=== PATIENT | female | born 1985 | race Caucasian/White ===

== ENCOUNTER 2017-12-13 12:32 | Outpatient (CLI) | payer OTHER | END 2017-12-13 12:33 | disposition home or self-care (01) | LOC: DTY/OP 12:32 | PROVIDERS: ATTEND Surgery | DX: E66.01 Morbid (severe) obesity due to excess calories (principal) | CPT/HCPCS: 97802 ==

== ENCOUNTER 2017-12-17 09:15 | Inpatient (IN) | payer OTHER, SELFPAY ==
[2017-12-24] MEDS ORDERED: CEFAZOLIN/Water 2 GM/20 ML SYRINGE ONE (06:12)
[2017-12-24] MEDS ORDERED: Heparin 5,000 UNITS/ML VIAL ONE (06:12)
[2017-12-24] MEDS ORDERED: Fentanyl 250 MCG/5 ML VIAL ONE (06:46)
[2017-12-24] MEDS ORDERED: Famotidine/PF 20 mg/2ml Vial ONE (06:46)
[2017-12-24] MEDS ORDERED: Fentanyl 100 MCG/2 ML VIAL ONE ×4 (06:46→10:27)
[2017-12-24] MEDS ORDERED: Scopolamine 1.5 mg/72 hour Patch ONE (07:03)
[2017-12-24] MEDS ORDERED: Bupivacaine/Epinephrine 0.25% 30 ML VIAL ONE (07:16)
[2017-12-24] MEDS ORDERED: Midazolam HCl 2 mg/2 ml Vial ONE (07:22)
[2017-12-24] MEDS ORDERED: Promethazine HCl 25 MG/ML VIAL SLOW IVP PRN (08:32)
[2017-12-24] MEDS ORDERED: Ondansetron HCl/PF 4 MG/2 ML Vial IVP PRN ×3 (08:32→09:47)
[2017-12-24] MEDS ORDERED: Meperidine HCl/PF 25 MG/ML VIAL SLOW IVP PRN (08:32)
[2017-12-24] MEDS ORDERED: Promethazine HCl 25 MG/ML VIAL IM PRN ×3 (08:32→09:47)
[2017-12-24] MEDS ORDERED: HumaLOG 300 UNITS/3 ML VIAL SC PRN (08:46)
[2017-12-24] MEDS ORDERED: hydrALAZINE 20 MG/ML VIAL SLOW IVP PRN (08:46)
[2017-12-24] MEDS ORDERED: Dextrose 5% in Water 1,000 ML IV PRN (08:46)
[2017-12-24] MEDS ORDERED: diphenhydrAMINE 50 MG/ML VIAL IVP PRN (08:46)
[2017-12-24] MEDS ORDERED: Hydrocodone-Acetamin 15 ML UDCUP PO PRN (08:46)
[2017-12-24] MEDS ORDERED: Dextrose 50% Abboject 50 ML SYRINGE SLOW IVP PRN (08:46)
--- NOTE | 2017-12-24 08:50 | OP ---
DATE OF PROCEDURE: 12/24/2017 PREOPERATIVE DIAGNOSIS: Morbid obesity. SURGEON: Fahad Sweeney M.D. RECEPTIONIST CLERK: Anderson Dunlap, MS-3 PROCEDURE PERFORMED: Laparoscopic sleeve gastrectomy, esophagogastroscopy. INDICATIONS: A 32-year-old female, morbidly obese, who has attempted multiple weight loss programs [facility]. FINDINGS: A 38 Nepali bougie used. PROCEDURE IN DETAIL: After informed consent was obtained, the patient was taken to the operating tigist m and given general endotracheal anesthesia. She was placed in the supine position. The abdomen was prepped and draped in usual fashion. Local anesthesia infiltrated subcutaneously and deep. A 12 mm incision was performed approximately 8 inches below the xiphoid slightly to the left. Veress needle inserted. Drop test performed. Pneumoperitoneum was created to a pressure of 15 mmHg. Zero degree laparoscope inserted under direct vision, a Relayren liver retractor inserted. Left lobe of liver retracted superiorly. Pylorus identified, a 12 mm port placed on the right beneath it and two 12s pl aced left subcostal. The omentum was taken off the greater curvature 5 cm from the pylorus utilizing the LigaSure. The left crura defined with the LigaSure as well as the short gastrics divided with t he LigaSure. A 38-Nepali bougie inserted directed into the antrum. The linear 60 mm green load stap ler used to divide the antrum to the bougie, gold load along the bougie, and a series of blues throug h the angle of His. Intraoperative endoscopy was performed. The video endoscope inserted under dire ct vision and advanced into the sleeve. The staple line inspected. There was no bleeding. Staple l ine then tested by inflating the new stomach with pressurized air under water and there was no air le ak. Stomach decompressed. Scope removed. The remnant stomach removed from the abdomen through the left lateral port site. The fascia closed with 0 Vicryl suture and the GraNee needle. Hemostasis wa s assured. Trocars and retractors removed. The skin closed with interrupted 4-0 Rapide. Now, it wa s noted after she was under general anesthesia that she had a cutaneous abscess in the left lower abd omen with some surrounding cellulitis, so she was already under anesthesia, we elected to proceed wit h surgery. After the wounds were closed and we applied Dermabond, we elected to do an I&D of this wi th an 11 blade and then just left it open and covered it with a sterile gauze.
[2017-12-24] MEDS ORDERED: SUGAMMADEX SODIUM 200 MG/2 ML VIAL ONE (09:01)
[2017-12-24] MEDS ORDERED: Promethazine HCl 25 MG/ML VIAL ONE (09:08)
[2017-12-24] MEDS ORDERED: Ondansetron HCl/PF 4 MG/2 ML Vial ONE ×2 (09:13→11:13)
[2017-12-24] MEDS ORDERED: Naloxone HCl 0.4 mg/ml Vial IV PRN (09:47)
[2017-12-24] MEDS ORDERED: diphenhydrAMINE 50 MG/ML VIAL IM PRN (09:47)
[2017-12-24] MEDS ORDERED: fentaNYL Citrate/PF 2,000 MCG in Sodium Chloride 0.9% 60 ML IV PRN ×2 (09:47→09:58)
[2017-12-24] MEDS ORDERED: diphenhydrAMINE 25 MG CAP PO PRN (09:47)
[2017-12-24] MEDS ORDERED: Zolpidem Tartrate 5 MG TAB PO PRN (09:47)
[2017-12-24] MEDS ORDERED: Communication Order-Pharmacy FS SCH (10:00)
[2017-12-24] MEDS ORDERED: Lidocaine 1% PF 5 ML VIAL ONE (11:13)
[2017-12-24] MEDS ORDERED: Ketorolac Tromethamine 30 MG/ML VIAL ONE (11:13)
[2017-12-24] MEDS ORDERED: PROPOFOL 200 MG/20 ML VIAL ONE (11:13)
[2017-12-24] MEDS ORDERED: Glycopyrrolate 0.2 MG/ML 5 ML SYRINGE ONE (11:13)
[2017-12-24] MEDS ORDERED: Dexamethasone 20 MG/5 ML VIAL ONE (11:13)
[2017-12-24 11:41] VITALS: BMI 48.6
[2017-12-24] MEDS: Pantoprazole 40 MG VIAL IVP SCH (11:53)
[2017-12-24] MEDS ORDERED: CEFAZOLIN/Water 2 GM/20 ML SYRINGE SLOW IVP SCH ×2 (12:00→14:00)
[2017-12-24] MEDS ORDERED: Ketorolac Tromethamine 30 MG/ML VIAL IVP SCH ×2 (12:00)
[2017-12-24] MEDS: Ketorolac Tromethamine 30 MG/ML VIAL IVP SCH ×2 (15:25→21:46)
[2017-12-24] MEDS: CEFAZOLIN/Water 2 GM/20 ML SYRINGE SLOW IVP SCH ×2 (15:25→23:50)
[2017-12-24] MEDS ORDERED: Acetaminophen 1,000 MG in Premix Bag 1 BAG IVPB PRN (19:14)
[2017-12-24] MEDS: 1/2 NS w/KCL 20 mEq 1,000 ML IV SCH ×2 (21:16→21:17)
[2017-12-24] MEDS: diphenhydrAMINE 50 MG/ML VIAL IVP PRN (21:47)
[2017-12-25] MEDS: diphenhydrAMINE 50 MG/ML VIAL IVP PRN (00:59)
[2017-12-25] MEDS: 1/2 NS w/KCL 20 mEq 1,000 ML IV SCH ×2 (00:59→08:41)
[2017-12-25] MEDS: Ketorolac Tromethamine 30 MG/ML VIAL IVP SCH ×2 (02:50→08:34)
[2017-12-25 05:11] LABS: #Lymphocytes 1.7 thou/uL (1.20-3.40); %Eosinophils 0.1 % (0.0-10.0); %Lymphocytes 14.1 % (21.0-51.0); %Monocytes 8.8 % (0.0-10.0); Hemoglobin 11.1 g/dL (12.0-16.0); Mean Corpuscular HGB CONC 34.4 g/dL (32.0-36.0); Mean Corpuscular Hemoglobin 33.8 pg (27.0-31.0); Mean Corpuscular Volume 98.2 fL (78.0-98.0); Mean Platelet Volume 7.4 fL (7.4-10.4); Platelet Count 286 thou/uL (130-400); RBC Distribution Width 11.8 % (11.5-14.5); Red Blood Cell (RBC) Count 3.28 mill/uL (4.20-5.40); White Blood Cell (WBC) Count 11.7 thou/uL (4.8-10.8)
[2017-12-25 05:42] LABS: Anion Gap 12 mmol/L (10-20); BUN (Urea Nitrogen) 9 mg/dL (7.0-18.7); Calc. Creatinine Clearance 206 mL/min (70-130); Calcium 8.8 mg/dL (7.8-10.44); Carbon Dioxide 24 mmol/L (22-29); Chloride 107 mmol/L (98-107); Estimated GFR-MDRD 81; Glucose 87 mg/dL (70-105); Sodium 139 mmol/L (136-145)
[2017-12-25] MEDS: Pantoprazole 40 MG VIAL IVP SCH (08:34)
[2017-12-25] MEDS ORDERED: Enoxaparin Sodium 40 MG/0.4 ML SYRINGE SC SCH (09:00)
--- NOTE | 2017-12-25 10:19 | RAD ---
ESOPHOGRAM: History: Bariatric surgery. FINDINGS: Single column contrast evaluation shows post-operative changes of the stomach consistent with gastric sleeve procedure. There is no evidence of obstruction or leak. Fluoro time = 0.2 minutes. POS: [facility]
[2017-12-25 11:45] VITALS: BP 142/72; TEMP 98.2
--- NOTE | 2017-12-26 13:52 | DIS ---
DISCHARGE DIAGNOSIS: Morbid obesity. PROCEDURES DURING ADMISSION: Laparoscopic sleeve gastrectomy. She also had an I&D of cutaneous absc ess. HOSPITAL COURSE: The patient was admitted, taken to the operating room where she underwent a sleeve gastrectomy. She was also after intubation found to have a small cutaneous abscess that was lanced. Cultures were obtained. She is now doing well. X-ray was fine. She is tolerating liquids. She wi ll continue dressing changes. We discharge her home on hydrocodone, Zofran, and Bactrim suspension. She will follow up with me in 2 weeks.
== END 2017-12-25 12:59 | disposition home or self-care (01) | DRG 621 ==
LOC: SURG A 12-24 05:57
PROVIDERS: ADMIT Surgery; ATTEND Surgery
PROC: 0DB64Z3 Excision of Stomach, Percutaneous Endoscopic Approach, Vertical (ICD-10-PCS; principal; 2017-12-24)
PROC: 0DJ68ZZ Inspection of Stomach, Via Natural or Artificial Opening Endoscopic (ICD-10-PCS; 2017-12-24)
DX: E66.01 Morbid (severe) obesity due to excess calories (principal); K21.9 Gastro-esophageal reflux disease without esophagitis; I10 Essential (primary) hypertension; E11.9 Type 2 diabetes mellitus without complications; G89.18 Other acute postprocedural pain; Z68.42 Body mass index [BMI] 45.0-49.9, adult; Z87.891 Personal history of nicotine dependence
CPT/HCPCS: 36415; 74241; 80048; 85025; 87070; 87077; 87205; 88307; 88312; 94760; C9113; J0131; J1200; J1644; J1650; J1885; J2250; J2405; J2550; J3010; J7050; S0028

== ENCOUNTER 2017-12-17 09:39 | Outpatient (CLI) | payer OTHER, SELFPAY ==
[2017-12-17 11:04] LABS: #Eosinphils 0.4 thou/uL (0.0-0.7); #Lymphocytes 1.9 thou/uL (1.20-3.40); #Monocytes 0.5 thou/uL (0.11-0.59); #Neutrophils 4.9 thou/uL (1.40-6.50); %Basophils 0.6 % (0.0-1.0); %Eosinophils 4.9 % (0.0-10.0); %Lymphocytes 24.9 % (21.0-51.0); %Monocytes 5.9 % (0.0-10.0); %Neutrophils 63.7 % (42.0-75.0); Mean Corpuscular HGB CONC 34.6 g/dL (32.0-36.0); Mean Corpuscular Hemoglobin 33.7 pg (27.0-31.0); Mean Corpuscular Volume 97.5 fL (78.0-98.0); Mean Platelet Volume 7.4 fL (7.4-10.4); Platelet Count 336 thou/uL (130-400); RBC Distribution Width 11.8 % (11.5-14.5); Red Blood Cell (RBC) Count 4.44 mill/uL (4.20-5.40); White Blood Cell (WBC) Count 7.7 thou/uL (4.8-10.8)
[2017-12-17 11:20] LABS: Hemoglobin A1c 4.8 % (4.0-6.0)
[2017-12-17 11:29] LABS: ALT (SGPT) 24 U/L (8-55); AST (SGOT) 16 U/L (5-34); Albumin 4.7 g/dL (3.5-5.0); Alkaline Phosphatase 76 U/L (40-150); Anion Gap 11 mmol/L (10-20); BUN (Urea Nitrogen) 20 mg/dL (7.0-18.7); Bilirubin, Direct 0.2 mg/dL (0.1-0.3); Bilirubin, Total 0.6 mg/dL (0.2-1.2); Calc. Creatinine Clearance 0 mL/min (70-130); Calcium 9.5 mg/dL (7.8-10.44); Carbon Dioxide 27 mmol/L (22-29); Chloride 103 mmol/L (98-107); Estimated GFR-MDRD 68; Glucose 96 mg/dL (70-105); Protein, Total 7.7 g/dL (6.0-8.3); Sodium 137 mmol/L (136-145)
--- NOTE | 2017-12-17 11:48 | RAD ---
2 VIEWS CHEST: Date: 12/17/17 HISTORY: Preoperative chest radiograph. FINDINGS: PA and lateral views of chest obtained. Comparison made to previous exam from 06/23/15. Two views of the chest demonstrate the lungs to be well aerated. No evidence of active intrathoracic disease seen. No evidence of effusions, pneumonia, or pneumothorax seen. IMPRESSION: Normal 2 views chest. POS: [facility]
[2017-12-17 13:16] LABS: BHCG - Serum Negative (NEGATIVE); Pregs Control Background? CLEAR/WHITE (CLR/WHITE); Pregs Control Bar Appear? YES (CONTROL BAR)
== END 2017-12-17 09:40 | disposition home or self-care (01) ==
LOC: LABBT 09:39
PROVIDERS: ATTEND Surgery
DX: Z01.818 Encounter for other preprocedural examination (principal); E66.01 Morbid (severe) obesity due to excess calories
CPT/HCPCS: 71046; 80053; 80076; 83036; 84703; 85025; 93005; 93010

== ENCOUNTER 2018-08-03 10:26 | Emergency (ER) | payer SELFPAY | END 2018-08-03 10:36 | disposition home or self-care (01) | LOC: SCSER 10:26 | DX: J11.1 Influenza due to unidentified influenza virus with other respiratory manifestations (principal); G43.909 Migraine, unspecified, not intractable, without status migrainosus; Z79.899 Other long term (current) drug therapy | CPT/HCPCS: 99283 ==

== ENCOUNTER → 2018-10-09 | Emergency (ER) | payer SELFPAY ==
[~2018-10-09] MED LIST: Fluorescein Opthalmic Strip ONE; Ketorolac Tromethamine 30 MG/ML VIAL ONE; Proparacaine 0.5% Opth 15 ML BOT ONE
== END ==
LOC: ERS 12:14
DX: S05.01XA Injury of conjunctiva and corneal abrasion without foreign body, right eye, initial encounter (principal); G43.909 Migraine, unspecified, not intractable, without status migrainosus; F17.210 Nicotine dependence, cigarettes, uncomplicated; V49.9XXA Car occupant (driver) (passenger) injured in unspecified traffic accident, initial encounter
CPT/HCPCS: 96372; J1885

== ENCOUNTER 2019-11-11 22:04 | Emergency (ER) | payer OTHER, SELFPAY ==
[2019-11-11] MEDS ORDERED: Ondansetron ODT 4 MG TAB ONE (23:28)
== END 2019-11-12 00:35 | disposition home or self-care (01) ==
LOC: ERS 22:04
DX: R50.9 Fever, unspecified (principal); R05 Cough; Z20.828 Contact with and (suspected) exposure to other viral communicable diseases; G43.909 Migraine, unspecified, not intractable, without status migrainosus; F17.210 Nicotine dependence, cigarettes, uncomplicated; Z79.899 Other long term (current) drug therapy
CPT/HCPCS: 87635; 87804; 99283; Q0162; U0003

== ENCOUNTER → 2019-12-01 | Day surgery (SDC) | payer SELFPAY ==
[~2019-12-01] MED LIST changes: +Bupivacaine 0.25% HCL 30 ML VIAL ONE; +Dexamethasone 20 MG/5 ML VIAL ONE; +Fentanyl 100 MCG/2 ML VIAL ONE; -Fluorescein Opthalmic Strip ONE; +Glycopyrrolate 0.2 MG/ML 5 ML SYRINGE ONE; +HYDROcodone/Acetaminophen 5/325 mg Tablet ONE; +Lidocaine 1% PF 5 ML VIAL ONE; +Lidocaine 1% w/Epinephrine 1:100K 20 ML VIAL ONE; +Midazolam HCl 2 mg/2 ml Vial ONE; +Morphine 4 MG/ML VIAL ONE; +Ondansetron PF 4 MG/2 ML Vial ONE; +PHENYLEPHRINE-NS 100 MCG/ML 10 ML SYRINGE ONE; +PROPOFOL 200 MG/20 ML VIAL ONE; +Promethazine HCl 25 MG/ML VIAL ONE; -Proparacaine 0.5% Opth 15 ML BOT ONE; +Rocuronium Bromide 10 MG/ML (10ML VIAL) ONE; +SUGAMMADEX SODIUM 200 MG/2 ML VIAL ONE; +Scopolamine 1.5 mg/72 hour Patch ONE; +Succinylcholine Chloride 20 MG/ML 10 ml SYRINGE FS ONE
[2019-12-01 11:49] LABS: #Basophils 0.1 thou/uL (0.0-0.2); #Eosinphils 0.8 thou/uL (0.0-0.7); #Monocytes 0.6 thou/uL (0.11-0.59); #Neutrophils 5.1 thou/uL (1.40-6.50); %Basophils 0.9 % (0.0-1.0); %Eosinophils 8.8 % (0.0-10.0); %Lymphocytes 23.9 % (21.0-51.0); %Monocytes 6.6 % (0.0-10.0); %Neutrophils 59.8 % (42.0-75.0); Hemoglobin 12.4 g/dL (12.0-16.0); Mean Corpuscular Hemoglobin 32.3 pg (27.0-31.0); Mean Corpuscular Volume 97.8 fL (78.0-98.0); Mean Platelet Volume 6.8 fL (7.4-10.4); Platelet Count 429 thou/uL (130-400); RBC Distribution Width 14.2 % (11.5-14.5); Red Blood Cell (RBC) Count 3.84 mill/uL (4.20-5.40); White Blood Cell (WBC) Count 8.5 thou/uL (4.8-10.8)
[2019-12-01 12:12] LABS: Bacteria/HPF None Seen HPF (None Seen); Bilirubin Negative (Negative); Blood, Urine 2+ (Negative); Clarity Clear (Clear); Glucose, Urine (Dipstick) Normal (Negative); Leukocyte Negative Leu/uL (Negative); Nitrite Negative (Negative); Protein, Urine (Dipstick) 10 mg/dL (Neg-Trace); RBC/HPF 0-3 HPF (0-3); Squamous Epithelial 0-3 HPF (0-3); Urobilinogen Normal mg/dL (Less than 2); WBC/HPF 0-3 HPF (0-3)
[2019-12-01 12:16] LABS: ALT (SGPT) 15 U/L (8-55); AST (SGOT) 17 U/L (5-34); Albumin 4.3 g/dL (3.5-5.0); Alkaline Phosphatase 64 U/L (40-110); Anion Gap 15 mmol/L (10-20); BUN (Urea Nitrogen) 16 mg/dL (7.0-18.7); Bilirubin, Total 0.6 mg/dL (0.2-1.2); Calc. Creatinine Clearance 0 mL/min (70-130); Carbon Dioxide 23 mmol/L (22-29); Chloride 103 mmol/L (98-107); Estimated GFR-MDRD 63; Globulin 3.3 g/dL (2.4-3.5); Glucose 108 mg/dL (70-105); Lipase 27 U/L (8-78); Potassium 3.7 mmol/L (3.5-5.1); Protein, Total 7.6 g/dL (6.0-8.3); Sodium 137 mmol/L (136-145)
[2019-12-01 12:22] LABS: BHCG - Serum Negative (NEGATIVE); Pregs Control Background? CLEAR/WHITE (CLR/WHITE); Pregs Control Bar Appear? YES (CONTROL BAR)
--- NOTE | 2019-12-01 12:41 | ULT ---
RIGHT UPPER QUADRANT ULTRASOUND CLINICAL HISTORY: Epigastric abdominal pain with nausea vomiting. COMPARISON: April 23, 2010 FINDINGS: Liver:Normal echotexture without focal mass. Intrahepatic bile ducts: No intrahepatic or extrahepatic biliary dilation.; Common bile duct: 4.3 mm. Gallbladder: There is a large stone within the gallbladder. Call's sign:None Main portal vein:Patent with hepatopedal flow. Pancreas:Visualized pancreas appears normal. Right kidney: Right kidney measures 9.0 x 4.3 x 5.9 cm. No focal renal lesion or hydronephrosis. Additional findings: None. IMPRESSION: Cholelithiasis without sonographic evidence of acute cholecystitis.
--- NOTE | 2019-12-01 17:50 | OP ---
DATE OF PROCEDURE: 12/01/2019 PREOPERATIVE DIAGNOSIS: Acute cholecystitis. POSTOPERATIVE DIAGNOSIS: Acute cholecystitis. PROCEDURE PERFORMED: Laparoscopic cholecystectomy. ANESTHESIA: General. ESTIMATED BLOOD LOSS: Minimal. COMPLICATIONS: None. SPECIMENS: Gallbladder. FINDINGS: Cholecystitis. PROCEDURE IN DETAIL: The patient was taken to the operating room and laid supine on the operating room table. After general anesthetic was obtained, the abdomen was prepped and draped in a sterile fashion. A curved incision was made below the umbilicus. Cautery was used to dissect down to the umbilical fascia. Umbilical fascia was incised and held up using a Linda. The abdominal cavity was entered using a Marjan clamp. Holding stitch of Vicryl was placed on each side of the fascia. Heck trocar was placed. High-flow pneumoperitoneum was obtained. An upper midline 5 mm port and 2 right upper quadrant 5 mm ports were placed under direct camera visualization. The gallbladder was retracted from the gallbladder fossa. The peritoneum of the gallbladder was opened anteriorly and posteriorly. The critical view triangle was seen showing only the cystic duct and cystic artery branching from medial to lateral. There were no other branching structures. Two clips were placed proximally on the cystic duct and one laterally. It was cut using laparoscopic scissors. The cystic artery was taken in the same way. Electrocautery was then used to dissect the gallbladder out of the gallbladder fossa. The gallbladder was placed in an Endo catch bag and brought out through the Heck. There was no bleeding or bile in the liver bed. The cystic duct stump and cystic artery stump were intact, without evidence of extravasation or bleeding. All port sites were infiltrated using local anesthesia. All ports were removed under camera visualization. Pneumoperitoneum was let down. The Vicryl was used to close the fascial defect below the umbilicus. All incisions were irrigated and closed using 4-0 Monocryl and Dermabond. The patient was en route to Recovery in stable condition. All instrument counts, needle counts and lap counts were correct. Job ID: [id number]
--- NOTE | 2019-12-01 18:39 | HP ---
CHIEF COMPLAINT: Right upper quadrant pain. HISTORY OF PRESENT ILLNESS: This is a 34-year-old female with a history of pain in her right upper quadrant. This is the 2nd attack that she has had and did not go away with pain medicine in the emergency room. Ultrasound shows gallstones. Never had jaundice or pancreatitis. PAST MEDICAL HISTORY: Includes: 1. Morbid obesity status post lap gastric sleeve. SURGICAL HISTORY: Lap sleeve. MEDICATIONS: See list. ALLERGIES: IODINE. SOCIAL HISTORY: No smoking or alcohol. REVIEW OF SYSTEMS: Ten-system review of systems otherwise negative unless described above. PHYSICAL EXAMINATION: HEENT: Sclerae are anicteric. Oropharynx clear. NECK: No lymphadenopathy. CHEST: Clear. HEART: Regular rate. ABDOMEN: Soft. Tender right upper quadrant with localized guarding. No rebound. No abdominal or inguinal hernias. EXTREMITIES: No ischemia or edema to extremities. LABORATORY DATA: Liver function tests normal. Ultrasound shows gallstones. ASSESSMENT: Acute cholecystitis. PLAN: Laparoscopic cholecystectomy. Risks, benefits, and alternatives discussed. She gives consent. We will do it today. Job ID: [id number]
== END ==
LOC: ERS 11:09 → SDC 14:53
PROVIDERS: ATTEND Surgery
PROC: 0FT44ZZ Resection of Gallbladder, Percutaneous Endoscopic Approach (ICD-10-PCS; principal; 2019-12-01)
DX: K80.13 Calculus of gallbladder with acute and chronic cholecystitis with obstruction (principal); Z91.041 Radiographic dye allergy status; Z91.013 Allergy to seafood; Z91.030 Bee allergy status
CPT/HCPCS: 76705; 80053; 81003; 81015; 83690; 84703; 85025; 88304; 93005; 96361; 96374; 96375; 96376; J0690; J1100; J1885; J2001; J2250; J2270; J2405; J2550; J2704; J3010; S0020

== ENCOUNTER 2021-11-27 23:47 | Emergency (ER) | payer SELFPAY ==
[2021-11-28 00:23] LABS: #Eosinphils 0.5 thou/uL (0.0-0.7); #Monocytes 0.4 thou/uL (0.11-0.59); #Neutrophils 3.3 thou/uL (1.40-6.50); %Basophils 0.7 % (0.0-1.0); %Eosinophils 10.2 % (0.0-10.0); %Monocytes 7.5 % (0.0-10.0); %Neutrophils 62.5 % (42.0-75.0); Hemoglobin 13.9 g/dL (12.0-16.0); Mean Corpuscular HGB CONC 31.4 g/dL (32.0-36.0); Mean Corpuscular Hemoglobin 29.7 pg (27.0-31.0); Mean Corpuscular Volume 94.6 fL (78.0-98.0); Mean Platelet Volume 7.1 fL (7.4-10.4); Platelet Count 344 thou/uL (130-400); RBC Distribution Width 14.8 % (11.5-14.5); Red Blood Cell (RBC) Count 4.68 mill/uL (4.20-5.40); White Blood Cell (WBC) Count 5.3 thou/uL (4.8-10.8)
[2021-11-28] MEDS ORDERED: Morphine 4 MG/ML VIAL ONE (00:37)
[2021-11-28] MEDS ORDERED: Ondansetron PF 4 MG/2 ML Vial ONE (00:37)
[2021-11-28 00:45] LABS: ALT (SGPT) 170 U/L (8-55); AST (SGOT) 57 U/L (5-34); Albumin 4.1 g/dL (3.5-5.0); Alkaline Phosphatase 170 U/L (40-110); Anion Gap 15 mmol/L (10-20); BUN (Urea Nitrogen) 13 mg/dL (7.0-18.7); Bilirubin, Total 0.3 mg/dL (0.2-1.2); Calc. Creatinine Clearance 0 mL/min (70-130); Calcium 8.9 mg/dL (7.8-10.44); Carbon Dioxide 23 mmol/L (22-29); Chloride 103 mmol/L (98-107); Globulin 3.5 g/dL (2.4-3.5); Glucose 94 mg/dL (70-105); Potassium 3.3 mmol/L (3.5-5.1); Protein, Total 7.6 g/dL (6.0-8.3); Sodium 138 mmol/L (136-145)
[2021-11-28 00:50] LABS: BHCG - Serum Negative (NEGATIVE); Pregs Control Background? CLEAR/WHITE (CLR/WHITE); Pregs Control Bar Appear? YES (CONTROL BAR)
[2021-11-28 00:53] LABS: Bilirubin Negative (Negative); Blood, Urine Trace (Negative); Clarity Turbid (Clear); Glucose, Urine (Dipstick) Normal (Negative); Ketone, Urine Negative (Negative); Leukocyte 75 Leu/uL (Negative); Nitrite Negative (Negative); Protein, Urine (Dipstick) 20 mg/dL (Neg-Trace); Specific Gravity, Urine 1.024 (1.002-1.036); Squamous Epithelial 21-50 HPF (0-3); Urobilinogen Normal mg/dL (Less than 2)
[2021-11-28 00:54] LABS: Bacteria/HPF 1+ HPF (None Seen)
[2021-11-28] MEDS ORDERED: Ketorolac Tromethamine 30 MG/ML VIAL ONE (01:31)
[2021-11-28] MEDS ORDERED: Metoclopramide HCl 10 MG/2 ML VIAL ONE (01:31)
== END 2021-11-28 03:50 | disposition home or self-care (01) ==
LOC: ERS 23:47
DX: R10.84 Generalized abdominal pain (principal); F17.210 Nicotine dependence, cigarettes, uncomplicated
CPT/HCPCS: 36415; 74176; 80053; 81003; 81015; 83605; 83690; 84703; 85025; 96374; 96375; J1885; J2270; J2405; J2765

== ENCOUNTER 2025-05-10 13:15 | Inpatient (IN) | payer SELFPAY ==
[2025-05-10] MEDS ORDERED: Famotidine/PF 20 mg/2ml Vial ONE (16:19)
[2025-05-10] MEDS ORDERED: diphenhydrAMINE 50 MG/ML VIAL ONE (16:19)
[2025-05-10] MEDS ORDERED: Metoclopramide HCl 10 MG (2 mL) VIAL ONE (16:19)
[2025-05-10 17:54] LABS: #Basophils 0.06 10x3/uL (0.0-0.2); #Eosinophils 0.05 10x3/uL (0.0-0.7); #Monocytes 0.86 10x3/uL (0.11-0.59); #Neutrophils 4.84 10x3/uL (1.40-6.50); %Basophils 0.9 % (0.0-1.0); %Eosinophils 0.7 % (0.0-10.0); %Lymphocytes 17.0 % (21.0-51.0); %Monocytes 12.2 % (0.0-10.0); %Neutrophils 68.8 % (42.0-75.0); Hematocrit 28.8 % (36.0-47.0); Hemoglobin 9.5 g/dL (12.0-16.0); Mean Corpuscular Hemoglobin 39.6 pg (27.0-31.0); Mean Corpuscular Volume 120.0 fL (78.0-98.0); Platelet Count 227 10x3/uL (130-400); Red Blood Cell (RBC) Count 2.40 mill/uL (4.20-5.40); White Blood Cell (WBC) Count 7.04 10x3/uL (4.8-10.8)
[2025-05-10 18:06] LABS: INR-International Normal Ratio 1.5; PTT 33.8 sec (22.9-36.1); Prothrombin Time 17.9 sec (12.0-14.7)
[2025-05-10 18:07] LABS: ALT (SGPT) 50 U/L (Less than 34); AST (SGOT) 136 U/L (11-34); Albumin 2.6 g/dL (3.1-4.5); Alkaline Phosphatase 416 U/L (40-110); Anion Gap 18 mmol/L (10-20); BUN (Urea Nitrogen) 5 mg/dL (7.0-18.7); Bilirubin, Total 11.8 mg/dL (0.3-1.2); Calc. Creatinine Clearance 0 mL/min (70-130); Calcium 8.2 mg/dL (7.8-10.44); Carbon Dioxide 24 mmol/L (22-29); Chloride 97 mmol/L (98-107); Globulin 4.4 g/dL (2.4-3.5); Glucose 77 mg/dL (70-105); Potassium 2.3 mmol/L (3.5-5.1); Sodium 137 mmol/L (136-145)
[2025-05-10] MEDS ORDERED: NS 0.9% w/ 20 MEQ KCL 1,000 ML ONE (18:51)
[2025-05-10] MEDS ORDERED: Ondansetron PF 4 MG/2 ML Vial IVP PRN (20:30)
[2025-05-10] MEDS ORDERED: Acetaminophen 325 MG TAB PO PRN (20:30)
[2025-05-10 21:40] VITALS: BMI 27.6
[2025-05-10 21:47] LABS: Magnesium 1.6 mg/dL (1.6-2.6)
[2025-05-11] MEDS: Magnesium 2 GM/50 ML(in water) 2 GM in Premix 1 BAG IVPB SCH (02:19)
[2025-05-11 04:50] LABS: Glucose, Urine (Dipstick) Negative (Negative); Leukocyte Negative (Negative); Protein, Urine (Dipstick) Negative (Neg-Trace); Specific Gravity, Urine 1.010 (1.005-1.030)
[2025-05-11 04:51] LABS: Bacteria/HPF None Seen HPF (None Seen); CAUTI Indications for Culture Acute Hematuria; RBC/HPF 0-3 HPF (0-3); WBC/HPF 0-3 HPF (0-3)
[2025-05-11 04:54] LABS: Urine Culture Reflex No No
[2025-05-11 05:54] LABS: #Basophils Less than 0.03 10x3/uL (0.0-0.2); #Eosinophils Less than 0.03 10x3/uL (0.0-0.7); #Monocytes 0.23 10x3/uL (0.11-0.59); #Neutrophils 3.29 10x3/uL (1.40-6.50); %Basophils 0.0 % (0.0-1.0); %Eosinophils 0.0 % (0.0-10.0); %Lymphocytes 14.3 % (21.0-51.0); %Monocytes 5.6 % (0.0-10.0); %Neutrophils 79.6 % (42.0-75.0); Hematocrit 27.0 % (36.0-47.0); Hemoglobin 8.7 g/dL (12.0-16.0); Mean Corpuscular Hemoglobin 39.9 pg (27.0-31.0); Mean Corpuscular Volume 123.9 fL (78.0-98.0); Platelet Count 221 10x3/uL (130-400); Red Blood Cell (RBC) Count 2.18 mill/uL (4.20-5.40); White Blood Cell (WBC) Count 4.13 10x3/uL (4.8-10.8)
[2025-05-11 06:14] LABS: ALT (SGPT) 42 U/L (Less than 34); AST (SGOT) 121 U/L (11-34); Albumin 2.3 g/dL (3.1-4.5); Alkaline Phosphatase 365 U/L (40-110); Anion Gap 15 mmol/L (10-20); BUN (Urea Nitrogen) 5 mg/dL (7.0-18.7); Bilirubin, Total 9.6 mg/dL (0.3-1.2); Calc. Creatinine Clearance 157 mL/min (70-130); Calcium 7.8 mg/dL (7.8-10.44); Carbon Dioxide 22 mmol/L (22-29); Chloride 101 mmol/L (98-107); Globulin 4.2 g/dL (2.4-3.5); Glucose 99 mg/dL (70-105); Magnesium 2.1 mg/dL (1.6-2.6); Potassium 3.1 mmol/L (3.5-5.1); Sodium 135 mmol/L (136-145)
[2025-05-11] MEDS: Folic Acid/Vit B Comp W-C PO SCH (08:29)
[2025-05-11] MEDS: Pantoprazole 40 MG DR.TAB PO SCH (08:29)
[2025-05-11] MEDS: Furosemide 20 MG TAB PO SCH (08:32)
[2025-05-11] MEDS: Enoxaparin 40 MG (0.4 mL) SYRINGE SC SCH (08:32)
[2025-05-11] MEDS: Metoclopramide HCl 10 MG (2 mL) VIAL IVP PRN (08:37)
[2025-05-11] MEDS ORDERED: Famotidine 20 MG TAB PO SCH (09:00)
[2025-05-11] MEDS: PNEUMOC 20-VAL CONJ-DIP CRM/PF 0.5 ML SYRINGE IM ONE (10:10)
[2025-05-11] MEDS: Acetaminophen 325 MG TAB PO PRN (21:56)
[2025-05-11] MEDS: Ketorolac Tromethamine 30 MG (1 mL) VIAL IVP PRN (21:57)
[2025-05-12 04:49] LABS: ALT (SGPT) 47 U/L (Less than 34); AST (SGOT) 130 U/L (11-34); Albumin 2.4 g/dL (3.1-4.5); Alkaline Phosphatase 404 U/L (40-110); Anion Gap 15 mmol/L (10-20); BUN (Urea Nitrogen) 8 mg/dL (7.0-18.7); Bilirubin, Total 8.2 mg/dL (0.3-1.2); Calc. Creatinine Clearance 137 mL/min (70-130); Calcium 8.0 mg/dL (7.8-10.44); Carbon Dioxide 25 mmol/L (22-29); Chloride 106 mmol/L (98-107); Globulin 4.2 g/dL (2.4-3.5); Glucose 75 mg/dL (70-105); Magnesium 2.0 mg/dL (1.6-2.6); Potassium 3.5 mmol/L (3.5-5.1); Sodium 142 mmol/L (136-145)
[2025-05-12 05:10] LABS: #Basophils 0.03 10x3/uL (0.0-0.2); #Eosinophils 0.06 10x3/uL (0.0-0.7); #Monocytes 0.91 10x3/uL (0.11-0.59); #Neutrophils 4.54 10x3/uL (1.40-6.50); %Basophils 0.4 % (0.0-1.0); %Eosinophils 0.8 % (0.0-10.0); %Lymphocytes 21.4 % (21.0-51.0); %Monocytes 12.8 % (0.0-10.0); %Neutrophils 64.0 % (42.0-75.0); Hematocrit 29.7 % (36.0-47.0); Hemoglobin 9.2 g/dL (12.0-16.0); Mean Corpuscular Hemoglobin 39.1 pg (27.0-31.0); Mean Corpuscular Volume 126.4 fL (78.0-98.0); Platelet Count 279 10x3/uL (130-400); Red Blood Cell (RBC) Count 2.35 mill/uL (4.20-5.40); White Blood Cell (WBC) Count 7.10 10x3/uL (4.8-10.8)
[2025-05-12] MEDS: Butalbital 50 MG/Aspirin 325 MG/Caffeine 40 MG CAPSULE PO SCH (08:40)
[2025-05-12] MEDS ORDERED: Pantoprazole 40 MG DR.TAB PO SCH (09:00)
[2025-05-12 15:56] VITALS: BP 129/93; TEMP 97.4
== END 2025-05-12 17:10 | disposition home or self-care (01) | DRG 640 ==
LOC: ERS 13:15 → 2NO 21:00
PROVIDERS: ADMIT Family Medicine; ATTEND Family Medicine
DX: E87.6 Hypokalemia (principal); K65.2 Spontaneous bacterial peritonitis; K74.60 Unspecified cirrhosis of liver; Z91.030 Bee allergy status; Z91.013 Allergy to seafood; Z91.018 Allergy to other foods; Z91.048 Other nonmedicinal substance allergy status; Z98.890 Other specified postprocedural states; Z79.899 Other long term (current) drug therapy; Z72.0 Tobacco use; F10.90 Alcohol use, unspecified, uncomplicated; D64.9 Anemia, unspecified; F41.9 Anxiety disorder, unspecified; K76.0 Fatty (change of) liver, not elsewhere classified; R11.2 Nausea with vomiting, unspecified; R51.9 Headache, unspecified
CPT/HCPCS: 36415; 71045; 74176; 80053; 81001; 83690; 83735; 84702; 85025; 85610; 85730; 87428; 93005; 96361; 96374; 96375; 96376; J1200; J1308; J1885; J2270; J2765; J2919; J3475; J3480; J7120

== ENCOUNTER 2025-05-31 08:27 | Inpatient (IN) | payer SELFPAY ==
[2025-05-31 09:41] LABS: Hematocrit 27.3 % (36.0-47.0); Hemoglobin 9.1 g/dL (12.0-16.0); Mean Corpuscular Hemoglobin 38.4 pg (27.0-31.0); Mean Corpuscular Volume 115.2 fL (78.0-98.0); Platelet Count 247 10x3/uL (130-400); Red Blood Cell (RBC) Count 2.37 mill/uL (4.20-5.40); White Blood Cell (WBC) Count 7.52 10x3/uL (4.8-10.8)
[2025-05-31] MEDS ORDERED: Droperidol 5 MG/2 ML VIAL ONE (09:43)
[2025-05-31 09:58] LABS: ALT (SGPT) 43 U/L (Less than 34); AST (SGOT) 177 U/L (11-34); Albumin 2.6 g/dL (3.1-4.5); Alkaline Phosphatase 677 U/L (40-110); Anion Gap 22 mmol/L (10-20); BUN (Urea Nitrogen) Less than 4 mg/dL (7.0-18.7); Bilirubin, Total 11.7 mg/dL (0.3-1.2); Calc. Creatinine Clearance 0 mL/min (70-130); Calcium 8.4 mg/dL (7.8-10.44); Carbon Dioxide 19 mmol/L (22-29); Chloride 101 mmol/L (98-107); Globulin 4.8 g/dL (2.4-3.5); Glucose 86 mg/dL (70-105); Lipase 52 U/L (8-78); Potassium 3.1 mmol/L (3.5-5.1); Sodium 139 mmol/L (136-145)
[2025-05-31 10:12] LABS: Anisocytosis MARKED = >30 cells HPF (0-5); Macrocytosis MARKED = >30 cells HPF (0-5); Ovalocytes SLIGHT = 2-5 cells HPF (0-1); Platelet Adequacy Comment Platelets Normal; Polychromasia SLIGHT = 2-3 cells HPF (0-2)
[2025-05-31] MEDS ORDERED: Metoclopramide HCl 10 MG (2 mL) VIAL ONE (10:44)
[2025-05-31] MEDS ORDERED: diphenhydrAMINE 50 MG/ML VIAL ONE (10:44)
[2025-05-31 11:01] LABS: INR-International Normal Ratio 1.5; Prothrombin Time 17.8 sec (12.0-14.7)
[2025-05-31 11:02] LABS: PTT 36.6 sec (22.9-36.1)
[2025-05-31 11:07] LABS: Magnesium 1.4 mg/dL (1.6-2.6)
[2025-05-31 12:12] LABS: BHCG - Serum Negative (NEGATIVE); Pregs Control Background? CLEAR/WHITE (CLR/WHITE); Pregs Control Bar Appear? YES (CONTROL BAR)
[2025-05-31] MEDS ORDERED: Ketorolac Tromethamine 30 MG (1 mL) VIAL ONE (12:37)
[2025-05-31] MEDS ORDERED: Magnesium 2 GM/50 ML BAG (IN WATER) ONE (14:32)
[2025-05-31 16:52] VITALS: BMI 28.1
[2025-05-31] MEDS ORDERED: Vancomycin 1.5 GRAM/300 ML BAG IVPB SCH (17:15)
[2025-05-31] MEDS: cefTRIAXone\\ROCEPHIN 2 GM in Sodium Chloride 0.9% 100 ML IVPB SCH (21:47)
[2025-05-31] MEDS: Potassium Chloride 20 MEQ in Premix 1 BAG IVPB SCH (21:47)
[2025-05-31 22:22] LABS: CAUTI Indications for Culture Fever or rigors; Glucose, Urine (Dipstick) Normal (Negative); Leukocyte 25 Leu/uL (Negative); Protein, Urine (Dipstick) 20 mg/dL (Neg-Trace); RBC/HPF 0-3 HPF (0-3); Specific Gravity, Urine 1.017 (1.002-1.036)
[2025-05-31] MEDS: VANCOMYCIN 2 GRAM/400 ML Premix BAG IVPB SCH (22:27)
[2025-05-31 22:34] LABS: Bacteria/HPF 1+ HPF (None Seen)
[2025-05-31 22:35] LABS: Urine Culture Reflex No No
[2025-05-31] MEDS: diphenhydrAMINE 50 MG/ML VIAL IVP SCH (23:31)
[2025-05-31] MEDS: Droperidol 5 MG/2 ML VIAL SLOW IVP SCH (23:32)
[2025-06-01 05:30] LABS: Vancomycin, Random 22.2 ug/mL (See Comment)
[2025-06-01 05:34] LABS: #Basophils 0.03 10x3/uL (0.0-0.2); #Eosinophils 0.11 10x3/uL (0.0-0.7); #Monocytes 0.68 10x3/uL (0.11-0.59); #Neutrophils 3.66 10x3/uL (1.40-6.50); %Basophils 0.5 % (0.0-1.0); %Eosinophils 1.9 % (0.0-10.0); %Lymphocytes 22.9 % (21.0-51.0); %Monocytes 11.6 % (0.0-10.0); %Neutrophils 62.4 % (42.0-75.0); Hematocrit 23.4 % (36.0-47.0); Hemoglobin 7.3 g/dL (12.0-16.0); Mean Corpuscular Hemoglobin 38.0 pg (27.0-31.0); Mean Corpuscular Volume 121.9 fL (78.0-98.0); Platelet Count 196 10x3/uL (130-400); Red Blood Cell (RBC) Count 1.92 mill/uL (4.20-5.40); White Blood Cell (WBC) Count 5.86 10x3/uL (4.8-10.8)
[2025-06-01 05:36] LABS: ALT (SGPT) 36 U/L (Less than 34); AST (SGOT) 140 U/L (11-34); Albumin 2.2 g/dL (3.1-4.5); Alkaline Phosphatase 554 U/L (40-110); Anion Gap 11 mmol/L (10-20); BUN (Urea Nitrogen) Less than 4 mg/dL (7.0-18.7); Bilirubin, Total 8.3 mg/dL (0.3-1.2); Calc. Creatinine Clearance 158 mL/min (70-130); Calcium 7.8 mg/dL (7.8-10.44); Carbon Dioxide 23 mmol/L (22-29); Chloride 106 mmol/L (98-107); Globulin 4.3 g/dL (2.4-3.5); Glucose 79 mg/dL (70-105); Potassium 3.1 mmol/L (3.5-5.1); Sodium 137 mmol/L (136-145)
[2025-06-01 06:29] LABS: Magnesium 1.7 mg/dL (1.6-2.6)
[2025-06-01 07:30] LABS: Hematocrit 23.9 % (36.0-47.0); Hemoglobin 7.5 g/dL (12.0-16.0)
[2025-06-01] MEDS: Folic Acid 1 MG TAB PO SCH (09:19)
[2025-06-01] MEDS: Vancomycin 1.5 GM / NS 500 ML VIAL-2-BAG IVPB SCH (09:19)
[2025-06-01] MEDS: Multivitamin W/ Minerals 1 TAB PO SCH (09:20)
[2025-06-01] MEDS: Pantoprazole 40 MG DR.TAB PO SCH (09:20)
[2025-06-01] MEDS: Thiamine 100 MG TAB PO SCH (09:20)
[2025-06-01] MEDS: Spironolactone 25 MG TAB PO SCH (09:20)
[2025-06-01] MEDS ORDERED: Lidocaine 1% PF 5 ML VIAL ONE (10:15)
[2025-06-01] MEDS ORDERED: Sodium Bicarbonate 2.5 MEQ/5 ML SDV ONE (10:15)
[2025-06-01 15:12] LABS: Anion Gap 11 mmol/L (10-20); BUN (Urea Nitrogen) Less than 4 mg/dL (7.0-18.7); Calc. Creatinine Clearance 163 mL/min (70-130); Calcium 7.7 mg/dL (7.8-10.44); Carbon Dioxide 22 mmol/L (22-29); Chloride 107 mmol/L (98-107); Glucose 93 mg/dL (70-105); Potassium 3.4 mmol/L (3.5-5.1); Sodium 137 mmol/L (136-145)
[2025-06-01 17:34] LABS: RBC Count-Automated (BF) 63 /cu.mm; WBC/Nucleated-Auto (BF) 45 /cu.mm
[2025-06-01] MEDS: Metoclopramide HCl 10 MG (2 mL) VIAL IVP PRN (18:20)
[2025-06-01] MEDS: diphenhydrAMINE 50 MG/ML VIAL IVP SCH (18:20)
[2025-06-01] MEDS: Transdermal Patch Removal TOP SCH (18:32)
[2025-06-01 19:35] LABS: BF Segmented Neutrophils 26 %; Cell Count Non Hematic 22 %
[2025-06-01] MEDS: Vancomycin 1.25 GM / NS 250 ML VIAL-2-BAG IVPB SCH (20:08)
[2025-06-02 06:06] LABS: ALT (SGPT) 30 U/L (Less than 34); AST (SGOT) 111 U/L (11-34); Albumin 1.9 g/dL (3.1-4.5); Alkaline Phosphatase 454 U/L (40-110); Anion Gap 6 mmol/L (10-20); BUN (Urea Nitrogen) Less than 4 mg/dL (7.0-18.7); Bilirubin, Total 5.5 mg/dL (0.3-1.2); Calc. Creatinine Clearance 157 mL/min (70-130); Calcium 7.5 mg/dL (7.8-10.44); Carbon Dioxide 21 mmol/L (22-29); Chloride 113 mmol/L (98-107); Globulin 3.8 g/dL (2.4-3.5); Glucose 87 mg/dL (70-105); Potassium 3.2 mmol/L (3.5-5.1); Sodium 137 mmol/L (136-145)
[2025-06-02 06:43] LABS: #Basophils Less than 0.03 10x3/uL (0.0-0.2); #Eosinophils 0.18 10x3/uL (0.0-0.7); #Monocytes 0.44 10x3/uL (0.11-0.59); #Neutrophils 2.98 10x3/uL (1.40-6.50); %Basophils 0.4 % (0.0-1.0); %Eosinophils 3.8 % (0.0-10.0); %Lymphocytes 22.8 % (21.0-51.0); %Monocytes 9.3 % (0.0-10.0); %Neutrophils 62.9 % (42.0-75.0); Hematocrit 23.3 % (36.0-47.0); Hemoglobin 7.3 g/dL (12.0-16.0); Mean Corpuscular Hemoglobin 38.4 pg (27.0-31.0); Mean Corpuscular Volume 122.6 fL (78.0-98.0); Platelet Count 182 10x3/uL (130-400); Red Blood Cell (RBC) Count 1.90 mill/uL (4.20-5.40); White Blood Cell (WBC) Count 4.74 10x3/uL (4.8-10.8)
[2025-06-02 06:54] LABS: Magnesium 1.6 mg/dL (1.6-2.6)
[2025-06-02] MEDS: Potassium Bicarbonate/Cit Ac 20 MEQ TAB PO SCH (06:55)
[2025-06-02 07:02] LABS: Macrocytosis MODERATE=16-30 cells HPF (0-5); Platelet Adequacy Comment Platelets Normal; Polychromasia SLIGHT = 2-3 cells HPF (0-2)
[2025-06-02] MEDS: Magnesium 2 GM/50 ML(in water) 2 GM in Premix 1 BAG IVPB SCH (11:30)
[2025-06-02 17:10] LABS: Anion Gap 9 mmol/L (10-20); BUN (Urea Nitrogen) Less than 4 mg/dL (7.0-18.7); Calc. Creatinine Clearance 160 mL/min (70-130); Calcium 7.5 mg/dL (7.8-10.44); Carbon Dioxide 22 mmol/L (22-29); Chloride 108 mmol/L (98-107); Glucose 85 mg/dL (70-105); Magnesium 2.2 mg/dL (1.6-2.6); Potassium 3.7 mmol/L (3.5-5.1); Sodium 135 mmol/L (136-145)
[2025-06-02] MEDS: diphenhydrAMINE 50 MG/ML VIAL IVP SCH (21:36)
[2025-06-02] MEDS: Metoclopramide HCl 10 MG (2 mL) VIAL IVP SCH (21:37)
[2025-06-03] MEDS: Melatonin 3 MG TAB PO PRN (00:02)
[2025-06-03 04:59] LABS: ALT (SGPT) 30 U/L (Less than 34); AST (SGOT) 91 U/L (11-34); Albumin 2.1 g/dL (3.1-4.5); Alkaline Phosphatase 463 U/L (40-110); Anion Gap 10 mmol/L (10-20); BUN (Urea Nitrogen) 6 mg/dL (7.0-18.7); Bilirubin, Total 4.6 mg/dL (0.3-1.2); Calc. Creatinine Clearance 154 mL/min (70-130); Calcium 7.7 mg/dL (7.8-10.44); Carbon Dioxide 20 mmol/L (22-29); Chloride 110 mmol/L (98-107); Globulin 3.7 g/dL (2.4-3.5); Glucose 87 mg/dL (70-105); Potassium 3.6 mmol/L (3.5-5.1); Sodium 136 mmol/L (136-145)
[2025-06-03 05:19] LABS: #Basophils 0.03 10x3/uL (0.0-0.2); #Eosinophils 0.21 10x3/uL (0.0-0.7); #Monocytes 0.56 10x3/uL (0.11-0.59); #Neutrophils 3.57 10x3/uL (1.40-6.50); %Basophils 0.5 % (0.0-1.0); %Eosinophils 3.8 % (0.0-10.0); %Lymphocytes 20.9 % (21.0-51.0); %Monocytes 10.0 % (0.0-10.0); %Neutrophils 63.7 % (42.0-75.0); Hematocrit 24.4 % (36.0-47.0); Hemoglobin 7.5 g/dL (12.0-16.0); Mean Corpuscular Hemoglobin 37.9 pg (27.0-31.0); Mean Corpuscular Volume 123.2 fL (78.0-98.0); Platelet Count 207 10x3/uL (130-400); Red Blood Cell (RBC) Count 1.98 mill/uL (4.20-5.40); White Blood Cell (WBC) Count 5.60 10x3/uL (4.8-10.8)
[2025-06-03] MEDS ORDERED: Acetaminophen 500 MG TAB PO PRN (07:49)
[2025-06-03] MEDS ORDERED: Ibuprofen 600 MG TAB PO PRN (07:50)
[2025-06-03 08:54] VITALS: BP 113/77; TEMP 98.7
== END 2025-06-03 12:55 | disposition home or self-care (01) | DRG 434 ==
LOC: ERS 08:27 → OBS 16:47 → OBSVTOIN 06-01 17:25
PROVIDERS: ADMIT Internal Medicine; ATTEND Internal Medicine
PROC: 0W9G30Z Drainage of Peritoneal Cavity with Drainage Device, Percutaneous Approach (ICD-10-PCS; principal; 2025-06-01)
PROC: 3E03329 Introduction of Other Anti-infective into Peripheral Vein, Percutaneous Approach (ICD-10-PCS; 2025-06-01)
DX: K70.31 Alcoholic cirrhosis of liver with ascites (principal); G47.00 Insomnia, unspecified; E80.6 Other disorders of bilirubin metabolism; D64.9 Anemia, unspecified; E87.6 Hypokalemia; E83.42 Hypomagnesemia; F41.9 Anxiety disorder, unspecified; K21.9 Gastro-esophageal reflux disease without esophagitis; F10.90 Alcohol use, unspecified, uncomplicated; F17.210 Nicotine dependence, cigarettes, uncomplicated; Z90.49 Acquired absence of other specified parts of digestive tract; Z98.84 Bariatric surgery status; Z91.030 Bee allergy status; Z79.899 Other long term (current) drug therapy; Z88.8 Allergy status to other drugs, medicaments and biological substances; Z91.018 Allergy to other foods; Z91.013 Allergy to seafood; Z98.890 Other specified postprocedural states
CPT/HCPCS: 36415; 49083; 74176; 80053; 80202; 81001; 82042; 83605; 83615; 83690; 83735; 84703; 85025; 85060; 85610; 85730; 87040; 87070; 87205; 87428; 89051; 93005; 93010; J0696; J1200; J1790; J1885; J2765; J3373; J3375; J3475; J3480; J7030; J7050; J7120